=== PATIENT | female | born 1980 | race Caucasian/White ===

== ENCOUNTER 2019-02-01 19:48 | Emergency (ER) | payer OTHER ==
[~2019-02-01] VITALS: Ht 165.1 cm; Wt 99.8 kg
[2019-02-01 21:05] LABS: BASO # 0.1 x10^3/uL (0.0-0.2); BASO % 1 % (0-3); EOS # 0.1 x10^3/uL (0.0-0.7); EOS % 1 % (0-3); HEMATOCRIT 38.2 % (36.0-47.0); LYMPH # 3.1 x10^3/uL (1.0-4.8); LYMPH % 31 % (24-48); MEAN CORPUSCULAR HEMOGLOBIN 30 pg (25-35); MEAN CORPUSCULAR HGB CONC 34 g/dL (31-37); MEAN CORPUSCULAR VOLUME 89 fL (79-100); MONO # 0.8 x10^3/uL (0.0-1.1); MONO % 8 % (0-9); NEUT # 5.9 x10^3uL (1.8-7.7); NEUT % 59 % (31-73); PLATELET COUNT 252 x10^3/uL (140-400); RED BLOOD COUNT 4.31 x10^6/uL (3.50-5.40); RED CELL DISTRIBUTION WIDTH 13.6 % (11.5-14.5)
[2019-02-01 21:07] LABS: BILIRUBIN,URINE NEGATIVE (NEG); CLARITY,URINE CLOUDY; COLOR,URINE YELLOW; NITRITE,URINE NEGATIVE (NEG); PROTEIN,URINE NEGATIVE (NEG-TRACE)
[2019-02-01 21:12] LABS: CALCIUM 9.2 mg/dL (8.5-10.1); CREATININE 0.9 mg/dL (0.6-1.0); GFR 70.5; POTASSIUM 3.4 mmol/L (3.5-5.1)
[2019-02-01 21:13] LABS: BACTERIA,URINE MANY /HPF (0-FEW); RBC,URINE 0 /HPF (0-2); SQUAMOUS EPITHELIAL CELL,UR MANY /LPF
[2019-02-01 21:18] LABS: ALBUMIN 3.7 g/dL (3.4-5.0); TOTAL BILIRUBIN 0.5 mg/dL (0.2-1.0); TOTAL PROTEIN 7.4 g/dL (6.4-8.2)
[2019-02-01] MEDS ORDERED: LIDO:MAALOX 1:1 20 ML SINGLE DOSE. SWSW ONE (21:30)
[2019-02-01] MEDS ORDERED: ONDANSETRON PF 4 MG/2 ML VIAL. IV ONE (21:30)
[2019-02-01] MEDS ORDERED: IV NORMAL SALINE 1000ML BAG 1,000 ML IV ONE (21:30)
[2019-02-01] MEDS ORDERED: KETOROLAC 15 MG/ML VIAL. IV ONE (22:30)
[2019-02-01] MEDS ORDERED: DICYCLOMINE 20 MG/2 ML AMPUL. IM ONE (22:30)
[2019-02-01 23:38] VITALS: BP 115/67
--- NOTE | 2019-02-01 23:43 | PHYS DOC ---
Past Medical History Past Medical History: No Pertinent History (PHILL BOWERS APRN) Past Surgical History: Cholecystectomy, Other Additional Past Surgical Histo: Bilateral Breast Lift, Tummy Tuck (PHILL BOWERS APRN) Alcohol Use: Occasionally Drug Use: None (PHILL BOWERS APRN) Adult General Chief Complaint Chief Complaint: ABDOMINAL PAIN HPI HPI 38-year-old female presents to ER with complaints of upper abdominal pain which is been ongoing since Friday. Patient states pain has been intermittent and she has had some increased pain after eating. Patient states she had her gallbladder surgically removed 2 years ago. Patient reports she's had in termittent nausea denies any vomiting or diarrhea episodes. She denies any fever, urinary symptoms, or vaginal symptoms. She reports she does not have monthly menstrual cycle due to IUD. She reports her appetite has been decreased and she has not been drinking much fluids since Friday. She denies being a daily smoker and states she drinks alcohol occasionally. She denies any alcohol in the past several days. She denies any chest pain, palpitations, or shortness of air. She reports G'mother on mom's side had LA when she was older- she had hx of DM/HTN no other family CAD hx. (PHILL BOWERS APRN) Review of Systems Review of Systems Constitutional: Denies fever or chills [] Eyes: Denies change in visual acuity, redness, or eye pain [] HENT: Denies nasal congestion or sore throat [] Respiratory: Denies cough or shortness of breath [] Cardiovascular: No additional information not addressed in HPI [] GI: Denies vomiting, bloody stools or diarrhea. Reports upper abd pain with intermittent nausea. Decreased appetite : Denies dysuria or hematuria. Denies vaginal bleeding Musculoskeletal: Denies back pain or joint pain [] Integument: Denies rash or skin lesions [] Neurologic: Denies headache, focal weakness or sensory changes [] All other systems were reviewed and found to be within normal limits, except as documented in this note. (PHILL BOWERS APRN) Current Medications Current Medications Current Medications Medications (Trade) Dose Ordered Sig/Gloria Start Time Stop Time Status Last Admin Dose Admin Dicyclomine HCl (Bentyl) 20 mg 1X ONCE 02/01/19 22:30 02/01/19 22:31 DC 02/01/19 22:51 20 MG Ketorolac Tromethamine (Toradol 15mg Vial) 15 mg 1X ONCE 02/01/19 22:30 02/01/19 22:31 DC 02/01/19 22:50 15 MG Multi-Ingredient Mouthwash/Gargle (Gi Cocktail) 20 ml 1X ONCE 02/01/19 21:30 02/01/19 21:31 DC 02/01/19 21:03 20 ML Ondansetron HCl (Zofran) 4 mg 1X ONCE 02/01/19 21:30 02/01/19 21:31 DC 02/01/19 21:03 4 MG Sodium Chloride 1,000 ml @ 1,000 mls/hr 1X ONCE 02/01/19 21:30 02/01/19 22:29 DC 02/01/19 21:03 1,000 MLS/HR (HERMINIO WANG DO) Allergies Allergies Allergies Coded Allergies Type Severity Reaction Last Updated Verified No Known Drug Allergies 02/01/19 No (HERMINIO WANG DO) Physical Exam Physical Exam Constitutional: Well developed, well nourished, no acute distress, non-toxic appearance. [] HENT: Normocephalic, atraumatic, bilateral ears normal, oropharynx moist, nose normal. [] Eyes: Pupils equal, conjunctiva normal, no discharge. [] Neck: Normal range of motion, no tenderness, supple, no stridor. [] Cardiovascular: Heart rate regular rhythm, no murmur [] Lungs & Thorax: Bilateral breath sounds clear to auscultation- resp. equal/nonlabored Abdomen: Bowel sounds normal, soft- no distention/rigidity, no masses, no pulsatile masses. [] Skin: Warm, dry, no erythema, no rash. [] Back: No tenderness, no CVA tenderness. [] Extremities: No tenderness, no cyanosis, no clubbing, ROM intact, no edema. [] Neurologic: Alert and oriented X 3, normal motor function, normal sensory function, no focal deficits noted. [] Psychologic: Affect normal, judgement normal, mood normal. [] (REFFITT,PHILL Diop APRN) Current Patient Data Vital Signs Vital Signs Date Time Temp Pulse Resp B/P (MAP) Pulse Ox O2 Delivery O2 Flow Rate FiO2 02/01/19 23:38 67 115/67 (83) 98 Room Air 02/01/19 19:48 98.3 16 98.3 (HERMINIO WANG DO) Lab Values Laboratory Tests Test 02/01/19 20:15 02/01/19 20:20 02/01/19 20:25 Urine Collection Type Unknown Urine Color Yellow Urine Clarity Cloudy Urine pH 6.0 Urine Specific [place] >=1.030 Urine Protein Negative mg/dL (NEG-TRACE) Urine Glucose (UA) Negative mg/dL (NEG) Urine Ketones (Stick) Trace mg/dL (NEG) Urine Blood Negative (NEG) Urine Nitrite Negative (NEG) Urine Bilirubin Negative (NEG) Urine Urobilinogen Dipstick 1.0 mg/dL (0.2 mg/dL) Urine Leukocyte Esterase Negative (NEG) Urine RBC 0 /HPF (0-2) Urine WBC 1-4 /HPF (0-4) Urine Squamous Epithelial Cells Many /LPF Urine Bacteria Many /HPF (0-FEW) Urine Mucus Marked /LPF White Blood Count 10.0 x10^3/uL (4.0-11.0) Red Blood Count 4.31 x10^6/uL (3.50-5.40) Hemoglobin 13.0 g/dL (12.0-15.5) Hematocrit 38.2 % (36.0-47.0) Mean Corpuscular Volume 89 fL (79-100) Mean Corpuscular Hemoglobin 30 pg (25-35) Mean Corpuscular Hemoglobin Concent 34 g/dL (31-37) Red Cell Distribution Width 13.6 % (11.5-14.5) Platelet Count 252 x10^3/uL (140-400) Neutrophils (%) (Auto) 59 % (31-73) Lymphocytes (%) (Auto) 31 % (24-48) Monocytes (%) (Auto) 8 % (0-9) Eosinophils (%) (Auto) 1 % (0-3) Basophils (%) (Auto) 1 % (0-3) Neutrophils # (Auto) 5.9 x10^3uL (1.8-7.7) Lymphocytes # (Auto) 3.1 x10^3/uL (1.0-4.8) Monocytes # (Auto) 0.8 x10^3/uL (0.0-1.1) Eosinophils # (Auto) 0.1 x10^3/uL (0.0-0.7) Basophils # (Auto) 0.1 x10^3/uL (0.0-0.2) Sodium Level 139 mmol/L (136-145) Potassium Level 3.4 mmol/L (3.5-5.1) L Chloride Level 102 mmol/L (98-107) Carbon Dioxide Level 31 mmol/L (21-32) Anion Gap 6 (6-14) Blood Urea Nitrogen 12 mg/dL (7-20) Creatinine 0.9 mg/dL (0.6-1.0) Estimated GFR (Cockcroft-Gault) 70.5 BUN/Creatinine Ratio 13 (6-20) Glucose Level 111 mg/dL (70-99) H Calcium Level 9.2 mg/dL (8.5-10.1) Total Bilirubin 0.5 mg/dL (0.2-1.0) Aspartate Amino Transferase (AST) 15 U/L (15-37) Alanine Aminotransferase (ALT) 20 U/L (14-59) Alkaline Phosphatase 44 U/L (46-116) L Troponin I Quantitative < 0.017 ng/mL (0.000-0.055) Total Protein 7.4 g/dL (6.4-8.2) Albumin 3.7 g/dL (3.4-5.0) Albumin/Globulin Ratio 1.0 (1.0-1.7) Lipase 175 U/L (73-393) POC Urine HCG, Qualitative Hcg negative (Negative) Laboratory Tests 02/01/19 20:20 Laboratory Tests 02/01/19 20:20 (HERMINIO WANG DO) EKG EKG EKG obtained 02/01/19 at [address] Wang Sinus rhythm Rate 62 No STEMI (PHILL BOWERS APRN) Radiology/Procedures Radiology/Procedures [] (PHILL BOWERS APRN) Course & Med Decision Making Course & Med Decision Making Pertinent Labs and Imaging studies reviewed. (See chart for details) Pt was evaluated in the ER for complaints of upper abdominal pain which started on Friday. Patient's had no vomiting or diarrhea episodes. IV was established and pt received IV flds/meds. Labs were obtained her potassium was at 3.4. Test results were discussed with patient other labs unremarkable. EKG was obtained no acute ST elevation/STEMI and troponin <0.017. UA negative for infection or ketones. Negative UCG. Following medications patient reports significant improvement in symptoms and is comfortable with home discharge without further monitoring. Had discussed imaging for further evaluation and with labs being unremarkable and symptoms improving she was comfortable with no additional testing. Discussed if symptoms reoccur or with concerns patient to follow-up with her primary care physician and/or GI. Will provide GI referral information on discharge paperwork. Pt is in no distress during d/c discussion and is non toxic in appearance. (PHILL BOWERS APRN) Dragon Disclaimer Dragon Disclaimer This electronic medical record was generated, in whole or in part, using a voice recognition dictation system. (PHILL BOWERS APRN) Departure Departure Impression: Primary Impression: Abdominal pain Disposition: HOME, SELF-CARE Condition: STABLE Referrals: ABBIE GRADY DO (PCP) LAURA JURADO MD Patient Instructions: Abdominal Pain Additional Instructions: Drink plenty of fluids. If symptoms persist follow-up with gastrointestinal doctor for re-evaluation and further care or your primary doctor. Scripts Dicyclomine Hcl (DICYCLOMINE HCL) 10 Mg Capsule 1 CAP PO PRN Q6HRS PRN for PAIN, #10 CAP 0 Refills Prov: PHILL BOWERS APRN 02/01/19 Attending Signature Attending Signature I have reviewed the PA/ASSOCIATE STORE DIRECTOR's note and plan of care. I was available for consultation as needed during the patient's visit in the emergency department. I agree with the clinical impression, plan, and disposition. (HERMINIO WANG DO) PHILL BOWERS APRN Feb 01, 2019 23:43 HERMINIO WANG DO February 04, 2019 02:59
[2019-02-01] MEDS ORDERED: DICY10CA3 PO (23:47)
--- NOTE | 2019-02-02 07:39 | EKG ---
[facility] [address] [place] [address] Test Date: 2019-02-01 Test Time: 21:13:26 Pat Name: JHONNY SCHULZ Department: Room: Gender: F [employer]: : 1980 Requested By: PHILL BOWERS Order Number: [id number] Reading MD: Jay Price Measurements Intervals [place] Rate: 62 P: 28 [place]: 154 QRS: 32 QRSD: 90 T: 36 QT: 372 QTc: 380 Interpretive Statements SINUS RHYTHM NO SPECIFIC ECG ABNORMALITIES RI6.01 No previous ECG available for comparison Electronically Signed On 02-05-2019 9:24:40 CDT by Jay Price
== END 2019-02-01 23:58 | disposition home or self-care (01) ==
LOC: ER 19:48
DX: R10.10 Upper abdominal pain, unspecified (principal); R11.0 Nausea; R63.0 Anorexia; Z90.49 Acquired absence of other specified parts of digestive tract
CPT/HCPCS: 36415; 80053; 81001; 81025; 83690; 84484; 85025; 93005; 96372; 96374; 96375; 99285; J0500; J1885; J2405; J7030; 96361